=== PATIENT | female | born 1985 | race Asian ===

== ENCOUNTER 2025-02-12 01:25 | Emergency (ER) | payer MEDICAID ==
[~2025-02-12] VITALS: Ht 147.3 cm; Wt 47.7 kg
[2025-02-12 01:30] VITALS: TEMP 97.9
[2025-02-12 02:07] LABS: PLATELET COUNT (AUTO) 330 K/uL (150-450); RED BLOOD CELL COUNT(AUTO) 4.60 MIL/uL (4.00-5.20); RED CELL DISTRIBUTION WIDTH 12.1 % (11.5-14.5); WHITE BLOOD COUNT (AUTO) 8.3 K/uL (4.5-11.0)
[2025-02-12 02:15] LABS: CALCIUM, TOTAL 9.2 mg/dL (8.8-10.5); CREATININE 0.75 mg/dL (0.60-1.30); GLOMERULAR FILTR. RATE CALC > 60 mL/min (>60); GLUCOSE,RANDOM 328 mg/dL (70-110); SODIUM SERUM 136 mmol/L (136-145); UREA NITROGEN, BLOOD 12 mg/dL (7-18)
[2025-02-12] MEDS: KETOROLAC TROMETHAMINE 30 MG/ML VIAL IM ONE (02:31)
[2025-02-12] MEDS: ACETAMINOPHEN 500 MG TABLET PO ONE (02:31)
[2025-02-12 03:02] LABS: APPEARANCE,URINE CLEAR (CLEAR); GLUCOSE, URINE (UA) >=1000 mg/dL (NEGATIVE); LEUKOCYTE ESTERASE ,URINE NEGATIVE (NEGATIVE); NITRATE,URINE NEGATIVE (NEGATIVE); OCCULT BLOOD,URINE NEGATIVE (NEGATIVE); SPECIFIC GRAVITIY, URINE 1.032 (1.003-1.030)
[2025-02-12 03:09] LABS: SQUAMOUS EPITHELIAL CELL,UR Few /LPF (None Seen)
[2025-02-12 03:21] VITALS: BP 145/87; PULSE 81; RESP 18; O2SAT 97
== END 2025-02-12 04:13 | disposition home or self-care (01) ==
LOC: EMS 01:27
DX: N93.8 Other specified abnormal uterine and vaginal bleeding (principal); R73.9 Hyperglycemia, unspecified
CPT/HCPCS: 99283; 80048; 81001; 84703; 85025; 36415; 96372; J1885